=== PATIENT | female | born 1955 | race Caucasian/White ===

== ENCOUNTER 2016-05-02 17:55 | Emergency (ER) | payer SELFPAY ==
[2016-05-02 17:58] VITALS: BP 189/122; PULSE 120; RESP 14; TEMP 97.9; O2SAT 96
--- NOTE | 2016-05-02 19:35 | PD ---
HPI Chief Complaint: Hypertension Time Seen by Provider: 19:35 Travel History International Travel<30 days: No Contact w/Intl Traveler<30days: No Traveled to known affect area: No History of Present Illness HPI 61-year-old female with history of hypertension, currently not taking any medication due to her running out. Patient states that she moves around a lot and does not have a primary care provider locally. She believes she is going to settle down in this area but is concerned that her blood pressure has been high. She states she's been having some episodes of indigestion lately and attributes it to her diet. States she had an episode today where her heart felt flat or a. Denies any significant pain. No recent illnesses, fever, chills. No other symptoms to report. PFSH Past Medical History Cardiovascular Problems: Yes (HTN) Social History Tobacco Use: No Allergies-Medications (Allergen,Severity, Reaction): Coded Allergies: No Known Allergies (Unverified , 05/02/16) Reported Meds & Prescriptions Reported Meds & Active Scripts Active Amlodipine (Amlodipine Besylate) 10 Mg Tab 10 Mg PO DAILY Lisinopril 40 Mg Tab 40 Mg PO DAILY Review of Systems Except as stated in HPI: all other systems reviewed are Neg Physical Exam Narrative GENERAL: Well-nourished female patient, ambulatory no acute distress SKIN: Warm and dry. HEAD: Atraumatic. Normocephalic. EYES: Pupils equal and round. No scleral icterus. No injection or drainage. ENT: No nasal bleeding or discharge. Mucous membranes pink and moist. NECK: Trachea midline. No JVD. CARDIOVASCULAR: Tachycardic rate and rhythm. No murmur appreciated. RESPIRATORY: No accessory muscle use. Clear to auscultation. Breath sounds equal bilaterally. GASTROINTESTINAL: Abdomen soft, non-tender, nondistended. Hepatic and splenic margins not palpable. MUSCULOSKELETAL: No obvious deformities. No clubbing. No cyanosis. No edema. NEUROLOGICAL: Awake and alert. No obvious cranial nerve deficits. Motor grossly within normal limits. Normal speech. PSYCHIATRIC: Appropriate mood and affect; insight and judgment normal. Data Data Last Documented VS Vital Signs Date Time Temp Pulse Resp B/P Pulse Ox O2 Delivery O2 Flow Rate FiO2 05/02/16 22:54 91 18 150/98 98 05/02/16 22:33 Room Air 05/02/16 17:58 97.9 Orders Clonidine (Catapres) (05/02/16 19:45) Complete Blood Count With Diff (05/02/16 20:47) Basic Metabolic Panel (Bmp) (05/02/16 20:47) Electrocardiogram (05/02/16 ) Troponin I (05/02/16 20:57) Ckmb (Isoenzyme) Profile (05/02/16 20:57) Potassium Chloride (Kcl) (05/02/16 22:45) Lisinopril (Prinivil) (05/02/16 22:45) Electrocardiogram (05/02/16 ) Labs Laboratory Tests Test 05/02/16 21:00 White Blood Count 6.9 TH/MM3 Red Blood Count 5.41 MIL/MM3 Hemoglobin 16.2 GM/DL Hematocrit 46.0 % Mean Corpuscular Volume 85.1 FL Mean Corpuscular Hemoglobin 29.8 PG Mean Corpuscular Hemoglobin 35.1 % Concent Red Cell Distribution Width 12.6 % Platelet Count 207 TH/MM3 Mean Platelet Volume 9.5 FL Neutrophils (%) (Auto) 48.7 % Lymphocytes (%) (Auto) 37.1 % Monocytes (%) (Auto) 10.6 % Eosinophils (%) (Auto) 2.6 % Basophils (%) (Auto) 1.0 % Neutrophils # (Auto) 3.4 TH/MM3 Lymphocytes # (Auto) 2.6 TH/MM3 Monocytes # (Auto) 0.7 TH/MM3 Eosinophils # (Auto) 0.2 TH/MM3 Basophils # (Auto) 0.1 TH/MM3 CBC Comment DIFF FINAL Differential Comment Sodium Level 141 MEQ/L Potassium Level 3.2 MEQ/L Chloride Level 105 MEQ/L Carbon Dioxide Level 27.2 MEQ/L Anion Gap 9 MEQ/L Blood Urea Nitrogen 12 MG/DL Creatinine 0.93 MG/DL Estimat Glomerular Filtration 62 ML/MIN Rate Random Glucose 86 MG/DL Calcium Level 9.5 MG/DL Total Creatine Kinase 49 U/L Troponin I LESS THAN 0.02 NG/ML MDM Medical Decision Making Medical Screen Exam Complete: Yes Emergency Medical Condition: Yes Medical Record Reviewed: Yes Differential Diagnosis Hypertension versus hypertensive urgency versus crisis versus liquid abnormality versus ACS Narrative Course 61-year-old female presents to emergency department for evaluation. Patient insists that her blood pressures elevated because she has not been taking her medication. She would rather not be brought into the hospital. I have attempted clonidine 0.1 mg with no improvement in the patient's vital signs except for lowering of her heart rate. After discussing with her more about this indigestion feeling and with the patient's blood pressure being as elevated as is is, I'm not comfortable going along with the patient's plan at this time. She verbalizes understanding. Workup was initiated in triage. Once medical that becomes available, patient will be transferred and care assumed by that provider. Scripts Amlodipine 10 Mg Tab10 Mg PO DAILY #30 TAB Ref 2 Prov:Sylvain Rand MD 05/02/16 Lisinopril 40 Mg Tab40 Mg PO DAILY #30 TAB Ref 2 Prov:Sylvain Rand MD 05/02/16 Condition: Stable Zoila Avila May 02, 2016 19:35
[2016-05-02] MEDS ORDERED: cloNIDine HCL 0.1 MG TAB PO ONE (19:45)
[2016-05-02 19:55] VITALS: BP 208/121; PULSE 93; RESP 14; O2SAT 99
[2016-05-02 20:51] VITALS: BP 185/119; PULSE 92; RESP 14; O2SAT 97
[2016-05-02 21:12] LABS: AUTOMATED NEUTROPHIL # 3.4 TH/MM3 (1.8-7.7); BASOPHIL # 0.1 TH/MM3 (0-0.2); EOSINOPHIL # 0.2 TH/MM3 (0-0.4); EOSINOPHIL % 2.6 % (0.0-4.0); HEMO FLAGS DIFF FINAL; LYMPH % 37.1 % (9.0-44.0); LYMPHOCYTE # 2.6 TH/MM3 (1.0-4.8); MEAN CELL VOLUME 85.1 FL (80.0-100.0); MEAN CORPUSCULAR HEMOGLOBIN 29.8 PG (27.0-34.0); MEAN CORPUSCULAR HGB CONC 35.1 % (32.0-36.0); MONO % 10.6 % (0.0-8.0); NEUT % 48.7 % (16.0-70.0); PLATELET COUNT 207 TH/MM3 (150-450); RED BLOOD COUNT 5.41 MIL/MM3 (4.00-5.30); RED CELL DISTRIBUTION WIDTH 12.6 % (11.6-17.2); WHITE BLOOD COUNT 6.9 TH/MM3 (4.0-11.0)
[2016-05-02 21:36] LABS: BICARBONATE 27.2 MEQ/L (21.0-32.0); POTASSIUM 3.2 MEQ/L (3.5-5.1)
[2016-05-02 22:06] LABS: CREATINE KINASE 49 U/L (26-192)
[2016-05-02 22:33] VITALS: BP 155/101; PULSE 90; RESP 16; O2SAT 99
[2016-05-02] MEDS ORDERED: LISI40TA PO (22:38)
[2016-05-02] MEDS ORDERED: AMLO10TA2 PO (22:38)
--- NOTE | 2016-05-02 22:39 | PD ---
Data Data Last Documented VS Vital Signs Date Time Temp Pulse Resp B/P Pulse Ox O2 Delivery O2 Flow Rate FiO2 05/02/16 22:54 91 18 150/98 98 05/02/16 22:33 Room Air 05/02/16 17:58 97.9 Orders Clonidine (Catapres) (05/02/16 19:45) Complete Blood Count With Diff (05/02/16 20:47) Basic Metabolic Panel (Bmp) (05/02/16 20:47) Electrocardiogram (05/02/16 ) Troponin I (05/02/16 20:57) Ckmb (Isoenzyme) Profile (05/02/16 20:57) Potassium Chloride (Kcl) (05/02/16 22:45) Lisinopril (Prinivil) (05/02/16 22:45) Labs Laboratory Tests Test 05/02/16 21:00 White Blood Count 6.9 TH/MM3 Red Blood Count 5.41 MIL/MM3 Hemoglobin 16.2 GM/DL Hematocrit 46.0 % Mean Corpuscular Volume 85.1 FL Mean Corpuscular Hemoglobin 29.8 PG Mean Corpuscular Hemoglobin 35.1 % Concent Red Cell Distribution Width 12.6 % Platelet Count 207 TH/MM3 Mean Platelet Volume 9.5 FL Neutrophils (%) (Auto) 48.7 % Lymphocytes (%) (Auto) 37.1 % Monocytes (%) (Auto) 10.6 % Eosinophils (%) (Auto) 2.6 % Basophils (%) (Auto) 1.0 % Neutrophils # (Auto) 3.4 TH/MM3 Lymphocytes # (Auto) 2.6 TH/MM3 Monocytes # (Auto) 0.7 TH/MM3 Eosinophils # (Auto) 0.2 TH/MM3 Basophils # (Auto) 0.1 TH/MM3 CBC Comment DIFF FINAL Differential Comment Sodium Level 141 MEQ/L Potassium Level 3.2 MEQ/L Chloride Level 105 MEQ/L Carbon Dioxide Level 27.2 MEQ/L Anion Gap 9 MEQ/L Blood Urea Nitrogen 12 MG/DL Creatinine 0.93 MG/DL Estimat Glomerular Filtration 62 ML/MIN Rate Random Glucose 86 MG/DL Calcium Level 9.5 MG/DL Total Creatine Kinase 49 U/L Troponin I LESS THAN 0.02 NG/ML [facility] Medical Record Reviewed: Yes Supervised Visit with RODO: Yes Narrative Course Patient's EKG demonstrates a sinus rhythm with a rate of 88 normal axis intervals no ischemic injury pattern or evidence of hypertrophic change CBC & BMP Diagram 05/02/16 21:00 Troponin less than 0.02 The patient is resting comfortably and feels better, is alert and in no distress. The patients results and examination findings were discussed. The repeat examination is unremarkable and benign. The history, exam, diagnostic testing, and current condition do not suggest any significant pathology to warrant further testing, continued ED treatment, admission, or surgical evaluation at this point. The vital signs have been stable. The patient does not have uncontrollable pain, intractable vomiting, or other significant symptoms. The patient's condition is stable and appropriate for discharge. The patient will pursue further outpatient evaluation with a primary care physician or other designated or consulting physician as indicated in the discharge instructions. The patient expressed understanding and was agreeable with this plan. Diagnosis Primary Impression: Hypertension Qualified Code: I10 - Essential hypertension Additional Impression: Hypokalemia Referrals: Sobeida Marte MD call for appointment Patient Assistance Program call for appointment Additional Instruction: You have a choice when it comes to health care, and we are glad that you chose [facility]. Hopefully, we have met your expectations on today's visit. You are welcome to return to [facility] at any time, as we are committed to meeting the health care needs of our community. Med/Other Pt SpecificInfo: Prescription(s) given Scripts Amlodipine 10 Mg Tab10 Mg PO DAILY #30 TAB Ref 2 Prov:Sylvain Rand MD 05/02/16 Lisinopril 40 Mg Tab40 Mg PO DAILY #30 TAB Ref 2 Prov:Sylvain Rand MD 05/02/16 Disposition: 01 DISCHARGE HOME Condition: Stable Sylvain Rand MD May 02, 2016 22:39
[2016-05-02] MEDS ORDERED: LISINOPRIL 20 MG TAB PO ONE (22:45)
[2016-05-02] MEDS ORDERED: POTASSIUM CHLORIDE 20 MEQ CONTROLLED RELEASE TAB PO ONE (22:45)
[2016-05-02 22:54] VITALS: BP 150/98
--- NOTE | 2016-05-03 15:56 | EKG ---
Date Performed: 05/02/2016 Time Performed: 21:07:39 PTAGE: 61 years EKG: Sinus rhythm POSSIBLE LEFT ATRIAL ENLARGEMENT Compared to prior tracing no significant change BORDERLINE ECG NO PREVIOUS TRACING DOCTOR: Aleah Irvin Interpretating Date/Time 05/03/2016 15:54:37
--- NOTE | 2016-05-03 15:56 | EKG ---
Date Performed: 05/02/2016 Time Performed: 22:17:03 PTAGE: 61 years EKG: Sinus rhythm POSSIBLE LEFT ATRIAL ENLARGEMENT Compared to prior tracing no significant change BORDERLINE ECG PREVIOUS TRACING : 05/02/2016 21.07 DOCTOR: Aleah Irvin Interpretating Date/Time 05/03/2016 15:54:29
== END 2016-05-02 22:54 | disposition home or self-care (01) ==
LOC: NEPE 17:55
DX: I10 Essential (primary) hypertension (principal); E87.6 Hypokalemia
CPT/HCPCS: 80048; 82550; 84484; 85025; 93005